=== PATIENT | male | born 1950 | race Caucasian/White ===

== ENCOUNTER 2025-04-14 07:36 | Outpatient (CLI) | payer MEDICARE, BC ==
[2025-04-14] MEDS ORDERED: Iopamidol 370 76% 100 ML VIAL ONE (08:07)
== END 2025-04-14 07:37 | disposition home or self-care (01) ==
LOC: CT 07:36
PROVIDERS: ATTEND Internal Medicine Hematology & Oncology
DX: K76.6 Portal hypertension (principal); D69.59 Other secondary thrombocytopenia; C7A.012 Malignant carcinoid tumor of the ileum; K59.00 Constipation, unspecified; Z98.890 Other specified postprocedural states
CPT/HCPCS: 74177